=== PATIENT | female | born 1965 | race Caucasian/White ===

== ENCOUNTER 2025-02-17 19:25 | Emergency (ER) | payer OTHER ==
[2025-02-17 19:56] LABS: Absolute Lymphocytes (CBC) 2.3 K/uL (0.7-4.9); Hematocrit 41.6 % (36.0-45.0); Hemoglobin 14.1 g/dL (12.0-15.0); MCH 30.5 pg (27.0-35.0); MCHC 33.9 g/dL (32.0-36.0); MCV 89.9 fL (80-100); MPV 8.6 fL (7.6-11.3); Nucleated RBC Absolute Count 0.0 (0-0); Nucleated Red Blood Cells % 0.0 % (0-0); RBC Red Blood Cell Count 4.63 M/uL (3.86-4.86); White Blood Count 7.40 thou/uL (4.3-10.9)
[2025-02-17] MEDS ORDERED: FENTANYL CITR 100 MCG/2 ML ONE (20:14)
[2025-02-17] MEDS ORDERED: ONDANSETRON 4 MG/2 ML VIAL ONE (20:14)
[2025-02-17 20:15] LABS: ALT/SGPT 29 U/L (13-56); AST/SGOT 24 U/L (15-37); Albumin 3.7 g/dL (3.4-5.0); Albumin/Globulin Ratio 1.3 (1.1-1.8); Alkaline Phosphatase 45 U/L (45-117); Anion Gap 11.3 mEq/L (5.0-15.0); BUN Blood Urea Nitrogen 14 mg/dL (7-18); Globulin 2.9 g/dL (2.3-3.5); Glucose Level 122 mg/dL (74-106); Magnesium 1.9 mg/dL (1.6-2.4); Potassium 3.3 mEq/L (3.5-5.1)
[2025-02-17] MEDS ORDERED: NA CHLORIDE 0.9% 1,000 ML ONE (20:15)
--- NOTE | 2025-02-17 20:21 | RAD REPORT ---
EXAMINATION: XR LEFT HUMERUS HISTORY: PAIN TECHNIQUE: Multiple views of the left humerus were obtained. COMPARISON: None FINDINGS: Comminuted fractures of the proximal humerus, predominantly at the base of the greater tube rosity. Surrounding soft tissue swelling. Joint alignment is maintained.
[2025-02-17 20:31] LABS: Bilirubin Indirect, Calculated 0.3 mg/dL (0.2-0.8)
--- NOTE | 2025-02-17 21:11 | ER ---
Nurse's Notes [facility] Name: Vicenta Carrasquillo Age: 59 yrs Sex: Female : 1965 Arrival Date: 02/17/2025 Time: 19:25 Bed 17 Private MD: Diagnosis: Abrasions to bilateral feet;Comminuted fractures of left humeral head;Syncope Presentation: 02/17 19:38 Chief complaint: EMS states: patient fell, did not hit her head, has an abrasion to kj2 left foot and left shoulder. Care prior to arrival: None. Mechanism of Injury: Fall from standing position. Trauma event details: Injury occurred: February 17, 2025. 19:38 Acuity: LOLIS 3 kj2 19:38 Method Of Arrival: EMS: [facility] kj2 19:40 Coronavirus screen: Client denies travel out of the [place] in the last 14 days. Ebola kj2 Screen: No symptoms or risks identified at this time. Initial Sepsis Screen: Does the patient meet any 2 criteria? No. Patient's initial sepsis screen is negative. Does the patient have a suspected source of infection? No. Patient's initial sepsis screen is negative. Risk Assessment: Do you want to hurt yourself or someone else? Patient reports no desire to harm self or others. Onset of symptoms was February 17, 2025. Triage Assessment: 19:41 General: see triage assessment. kj2 Historical: - Allergies: 20:31 Sulfa (Sulfonamide Antibiotics); kj2 - Immunization history: Last tetanus immunization: unknown. - Infectious Disease History:: Denies. - Social history:: Smoking status: unknown. Screenin:41 [facility] ED Fall Risk Assessment (Adult) History of falling in the last 3 months, kj2 including since admission Yes- single mechanical fall (1 pt) Confusion or Disorientation No (0 pts) Intoxicated or Sedated No (0 pts) Impaired Gait No (0 pts) Mobility Assist Device Used No (0 pt) Altered Elimination No (0 pt) Score/Fall Risk Level 0 - 2 = Low Risk Maintained a safe environment, Hourly rounding (assess needs \T\ fall precautionary measures) done. Abuse screen: Denies threats or abuse. Denies injuries from another. Nutritional screening: No deficits noted. Tuberculosis screening: No symptoms or risk factors identified. Primary Survey: 19:42 NO uncontrolled hemorrhage observed. Breathing/Chest: Spontaneous respiratory effort, kj2 equal unlabored respirations, breath sounds clear bilaterally, regular pattern, symmetrical chest rise and fall. Respiratory effort: spontaneous, unlabored, Breath sounds: clear. Circulation: No external hemorrhage present. Regular and strong central pulse, skin warm/dry/normal color. Disability Pupils are equal, round, reactive to light and accommodation. Client is alert. Exposure/Environment: All clothing and personal items were removed. Forensic evidence collection is not deemed to be indicated at this time. Items placed in patient belonging bag. There is no evidence of uncontrolled external bleeding. 20:31 Reassessment Alertness and Airway: Awake and alert. The airway is patent. Airway Patent kj2 Breathing: Spontaneous respiratory effort, equal unlabored respirations, breath sounds clear bilaterally, regular pattern with symmetrical chest rise and fall. Assessment: 19:39 General: Appears in no apparent distress. Behavior is cooperative. Pain: Complains of kj2 pain in left shoulder. Neuro: Level of Consciousness is awake, alert, obeys commands, Oriented to person, place, time, situation. Cardiovascular: Patient's skin is warm and dry. Respiratory: Airway Respiratory effort is unlabored. GI: No signs and/or symptoms were reported involving the gastrointestinal system. : No signs and/or symptoms were reported regarding the genitourinary system. 20:33 Reassessment: Patient appears in no apparent distress at this time. Patient and/or kj2 family updated on plan of care and expected duration. Pain level reassessed. Patient is alert, oriented x 3, equal unlabored respirations, skin warm/dry/pink. Vital Signs: 19:40 BP 126 / 73; Pulse 86; Resp 18; Pulse Ox 100% ; kj2 19:40 Temp 98(O); kj2 20:21 Weight 53.52 kg; Height 5 ft. 4 in. ; kj2 20:33 BP 117 / 76; Pulse 85; Resp 18; Pulse Ox 98% on R/A; kj2 21:20 BP 118 / 78; Pulse 84; Resp 18; Temp 97.9; Pulse Ox 99% on R/A; kj2 20:21 Body Mass Index 20.25 (53.52 kg, 162.56 cm) kj2 [place] Coma Score: 19:40 Eye Response: spontaneous(4). Motor Response: obeys commands(6). Verbal Response: kj2 oriented(5). Total: 15. Trauma Score (Adult): 19:40 Eye Response: spontaneous(1); Verbal Response: oriented(1); Motor Response: obeys kj2 commands(2); Systolic BP: > 89 mm Hg(4); Respiratory Rate: 10 to 29 per min(4); Bartolo Score: 15; Trauma Score: 12 ED Course: 19:30 Patient arrived in ED. rk3 19:30 Gabino Romo MD is Attending Physician. sp4 19:32 Samanta Jamil FNP-C is [facility] kb 19:37 Briana Briceño, BUBBA is Primary Nurse. kj2 19:39 Triage completed. kj2 19:40 Patient maintains SpO2 saturation greater than 95% on room air. kj2 19:40 Thermoregulation: none needed. kj2 19:42 Patient has correct armband on for positive identification. Bed in low position. Call kj2 light in reach. Side rails up X 1. Adult w/ patient. Provided Education on: call light. 19:50 Initial lab(s) drawn, by me, sent to lab. Inserted saline lock: 20 gauge in right rk3 antecubital area, using aseptic technique. Blood collected. Flushed with 10 mL NS. 20:12 Humerus Left XRAY In Process Unspecified. EDMS 21:55 No provider procedures requiring assistance completed. IV discontinued, intact, kj2 bleeding controlled, No redness/swelling at site. Pressure dressing applied. Administered Medications: 20:21 Drug: Ondansetron IVP 4 mg IVP once; over 2 minutes Route: IVP; Site: right antecubital;kj2 21:56 Follow up: Response: No adverse reaction kj2 20:21 Drug: NS 0.9% IV 1000 ml IV at 1000 ml once; to be given as a bolus over 60 minutes kj2 Route: IV; Rate: 1000 ml; Site: right antecubital; 21:56 Follow up: IV Status: Completed infusion; IV Intake: 1000ml kj2 20:22 Drug: fentaNYL (PF) IVP 25 mcg IVP once Route: IVP; Site: right antecubital; kj2 21:56 Follow up: Response: No adverse reaction kj2 21:38 Drug: Potassium Chloride PO 20 mEq PO once Route: PO; kj2 21:56 Follow up: Response: No adverse reaction kj2 21:38 Drug: Doxycycline PO 100 mg PO once Route: PO; kj2 21:56 Follow up: Response: No adverse reaction kj2 Medication: 21:55 VIS not applicable for this client. kj2 Intake: :55 PO: 0ml; Total: 0ml. kj2 21:56 IV: 1000ml; Total: 1000ml. kj2 Outcome: 21:10 Discharge ordered by . kb 21:55 Discharged to home via wheelchair, kj2 21:55 Condition: stable 21:55 Discharge instructions given to patient, family, Instructed on discharge instructions, follow up and referral plans. Demonstrated understanding of instructions, follow-up care, :56 Patient's length of stay was not longer than 2 hours. kj2 21:57 Patient left the ED. kj2 Signatures: Dispatcher [employer] EDMS Samanta Jamil, VINAYAK STREETER-Gabino Bullock MD MD sp4 Briana Briceño RN RN kj2 Sylwia Yip rk3
--- NOTE | 2025-02-17 21:11 | EDPHYS ---
Physician Documentation [facility] Name: Vicenta Carrasquillo Age: 59 yrs Sex: Female : 1965 Arrival Date: 02/17/2025 Time: 19:25 Bed 17 Private MD: ED Physician Gabino Romo HPI: 02/17 19:30 This 59 yrs old Other Race Female presents to ER via Unassigned with complaints of arm sp4 injury. 20:22 Patient is a 59-year-old female who was getting onto a boat, slipped and fell on the dock. Reports pain to left upper arm. Patient denies hitting head or LOC at the time of fall but did pass out due to pain when she tried to get up. Patient denies headache, dizziness. Historical: - Allergies: 20:31 Sulfa (Sulfonamide Antibiotics); kj2 - Immunization history: Last tetanus immunization: unknown. - Infectious Disease History:: Denies. - Social history:: Smoking status: unknown. ROS: 20:21 Constitutional: As per HPI kb Exam: 20:21 Constitutional: This is a well developed, well nourished patient who is awake, alert, kb and in no acute distress. Head/Face: Normocephalic, atraumatic. ENT: Moist Mucous membranes Cardiovascular: Regular rate Respiratory: Respirations even and unlabored. No increased work of breathing. Talking in full sentences Abdomen/GI: Soft, non-tender. No distention Neuro: Awake and alert, GCS 15, oriented to person, place, time, and situation. 20:21 Musculoskeletal/extremity: Extremities: grossly normal except: noted in the left upper arm: decreased ROM, pain, tenderness, ROM: limited active range of motion due to pain, Circulation is intact in all extremities. Sensation intact. 20:21 Skin: injury, abrasion(s), small abrasion noted, of the right foot and left foot, 20:22 Musculoskeletal/extremity: Extremities: noted in the lateral aspect of left thigh: kb abrasion, 21:09 ECG was reviewed by the Attending Physician. kb Vital Signs: 19:40 BP 126 / 73; Pulse 86; Resp 18; Pulse Ox 100% ; kj2 19:40 Temp 98(O); kj2 20:21 Weight 53.52 kg; Height 5 ft. 4 in. ; kj2 20:33 BP 117 / 76; Pulse 85; Resp 18; Pulse Ox 98% on R/A; kj2 21:20 BP 118 / 78; Pulse 84; Resp 18; Temp 97.9; Pulse Ox 99% on R/A; kj2 20:21 Body Mass Index 20.25 (53.52 kg, 162.56 cm) kj2 Bartolo Coma Score: 19:40 Eye Response: spontaneous(4). Motor Response: obeys commands(6). Verbal Response: kj2 oriented(5). Total: 15. Trauma Score (Adult): 19:40 Eye Response: spontaneous(1); Verbal Response: oriented(1); Motor Response: obeys kj2 commands(2); Systolic BP: > 89 mm Hg(4); Respiratory Rate: 10 to 29 per min(4); Bartolo Score: 15; Trauma Score: 12 MDM: 19:32 Medical Screening Exam initiated kb 20:22 Data reviewed: vital signs, nurses notes. Historians other than the Patient: EMS: [facility]. 20:35 Independent interpretation of the following test(s) in the Emergency Department X-Ray: kb My interpretation is Fracture of proximal humerus on x-ray. 21:09 Differential diagnosis: contusion, fracture, strain, Dislocation, vagal response, kb syncope. Counseling: I had a detailed discussion with the patient and/or guardian regarding the historical points, exam findings, and any diagnostic results supporting the discharge/admit diagnosis, lab results, radiology results, the need for outpatient follow up, a family practitioner, to return to the emergency department if symptoms worsen or persist or if there are any questions or concerns that arise at home. 02/17 19:32 Order name: Basic Metabolic Panel; Complete Time: 20:35 kb 02/17 19:32 Order name: CBC with Diff; Complete Time: 19:58 kb 02/17 19:32 Order name: Hepatic Function; Complete Time: 20:35 kb 02/17 19:32 Order name: Magnesium; Complete Time: 20:35 kb 02/17 19:32 Order name: Humerus Left XRAY; Complete Time: 20:23 kb 02/17 19:32 Order name: Cardiac monitoring; Complete Time: 20:51 kb 02/17 19:32 Order name: EKG - Nurse/Tech; Complete Time: 20:51 kb 02/17 19:32 Order name: IV Saline Lock; Complete Time: 19:50 kb 02/17 19:32 Order name: Labs collected and sent; Complete Time: 19:50 kb 02/17 19:32 Order name: NPO; Complete Time: 20:52 kb 02/17 19:32 Order name: O2 Per Protocol; Complete Time: 19:50 kb 02/17 19:32 Order name: O2 Sat Monitoring; Complete Time: 19:50 kb 02/17 20:24 Order name: Sling; Complete Time: 21:02 kb EC:09 Rate is 86 beats/min. Rhythm is regular. QRS [place] is Normal. MN interval is normal at kb 198 msec. QRS interval is normal at 72 msec. QT interval is normal at 423 msec. Administered Medications: 20:21 Drug: Ondansetron IVP 4 mg IVP once; over 2 minutes Route: IVP; Site: right antecubital;kj2 21:56 Follow up: Response: No adverse reaction kj2 20:21 Drug: NS 0.9% IV 1000 ml IV at 1000 ml once; to be given as a bolus over 60 minutes kj2 Route: IV; Rate: 1000 ml; Site: right antecubital; 21:56 Follow up: IV Status: Completed infusion; IV Intake: 1000ml kj2 20:22 Drug: fentaNYL (PF) IVP 25 mcg IVP once Route: IVP; Site: right antecubital; kj2 21:56 Follow up: Response: No adverse reaction kj2 21:38 Drug: Potassium Chloride PO 20 mEq PO once Route: PO; kj2 21:56 Follow up: Response: No adverse reaction kj2 21:38 Drug: Doxycycline PO 100 mg PO once Route: PO; kj2 21:56 Follow up: Response: No adverse reaction kj2 Disposition: 02/18 02:13 Co-signature as Attending Physician, Gabino Romo MD I agree with the assessment sp4 and plan of care. I reviewed the patient's care provided by the Advanced Practice Provider and agree with the diagnosis and treatment plan. Disposition Summary: 02/17/25 21:10 Discharge Ordered Notes: Location: Home Condition: Stable kb Diagnosis - Abrasions to bilateral feet kb - Comminuted fractures of left humeral head kb - Syncope kb Followup: kb - With: Emergency Department - When: As needed - Reason: Worsening of condition Followup: kb - With: Private Physician - When: 2 - 3 days - Reason: Recheck today's complaints, Continuance of care, Re-evaluation by your physician Discharge Instructions: - Discharge Summary Sheet kb - Humerus Fracture Treated With Immobilization, [id number] kb - Abrasion, [id number] kb - Syncope, [id number] kb Forms: - Medication Reconciliation Form kb - Antibiotic Education kb - Prescription Opioid Use kb - Patient Portal Instructions kb - Leadership Thank You Letter kb Prescriptions: - Doxycycline Hyclate 100 mg Oral Tablet - take 1 tablet ORAL route every 12 hours; 20 tablet; Refills: 0, Product kb Selection Permitted - Tramadol 50 mg Oral Tablet - take 1 tablet ORAL route every 8 hours as needed; 12 tablet; Refills: 0, kb Product Selection Permitted Signatures: Dispatcher [employer] EDSamanta Kingston, MYRONC SYL-Gabino Bullock MD MD sp4 Briana Briceño RN RN kj2
[2025-02-17] MEDS ORDERED: DOXYCYCLINE 100 MG CAP PO ONE (21:33)
[2025-02-17] MEDS ORDERED: POTASSIUM CL SA 10 MEQ TAB PO ONE (21:33)
[2025-02-17 22:33] VITALS: BP 88/61; TEMP 97.8; O2SAT 100
== END 2025-02-17 21:57 | disposition home or self-care (01) ==
LOC: ER 19:25
DX: S42.292A Other displaced fracture of upper end of left humerus, initial encounter for closed fracture (principal); S90.812A Abrasion, left foot, initial encounter; S90.811A Abrasion, right foot, initial encounter; R55 Syncope and collapse; W01.0XXA Fall on same level from slipping, tripping and stumbling without subsequent striking against object, initial encounter
CPT/HCPCS: 96361; 85025; 80048; 36415; 83735; 80076; 73060; 96375; 96374; 99285; J3010; J2405; J7030